=== PATIENT | female | born 1975 | race Caucasian/White ===

== ENCOUNTER 2016-11-21 11:18 | Emergency (ER) | payer OTHER ==
[~2016-11-21] VITALS: Ht 162.6 cm; Wt 54.4 kg
[2016-11-21 11:50] VITALS: BP 122/75
--- NOTE | 2016-11-21 12:42 | Diagnostic Imaging Report ---
Indication: Pain Findings: 3 views of the right elbow were obtained. No acute fractures, malalignment, erosions or periostitis are identified. Bone mineralization is within normal limits. Soft tissues are unremarkable. Impression: Negative examination of the elbow.
--- NOTE | 2016-11-21 13:48 | Emergency Room Report ---
History of Present Illness General Chief Complaint: Pain Source: Patient Present Illness HPI Patient presents with R elbow pain worsened for 3 days. No known trauma. No fevers. Pain is in elbow and slightly in dorsal forearm. Radiate slightly to forearm. Sharp and aching. Pain 6/10. Took med someone gave her (possibly 600 mg ibuprofen) with min relief. No numbness. Job has her lifting heavy objects repetitively. No NVD, dysuria. R handed. Allergies: Coded Allergies: No Known Allergies (Unverified , 11/21/16) Patient History Past Medical History: see triage record Social History: Denies: smoking Social History Narrative works with lifting Reviewed Nursing Documentation: PMH: Agreed, PSxH: Agreed Nursing Documentation-PMH Past Medical History: No Stated History Review of Systems All Other Systems: negative except mentioned in HPI Physical Exam Vital Signs Date Time Temp Pulse Resp B/P (MAP) Pulse Ox O2 Delivery O2 Flow Rate FiO2 11/21/16 11:37 98.2 77 20 122/75 99 Room Air Sp02 EP Interpretation: reviewed, normal General Appearance: well appearing, no apparent distress Head: normocephalic, atraumatic Eyes: bilateral eye normal inspection, bilateral eye PERRL ENT: hearing grossly normal, normal voice, moist mucus membranes Neck: full range of motion, supple Respiratory: no respiratory distress, speaking full sentences Cardiovascular #1: regular rate, rhythm Cardiovascular #2: 2+ radial (R) - good cap fill Gastrointestinal: normal inspection Musculoskeletal: back normal, digits/nails normal, normal range of motion, other - tender lateral elbow and dorsal forearm muscles. No ulnar gutter tenderness Neurologic: alert, motor strength/tone normal, sensory intact, normal gait, other - RMU nerves tested normal Psychiatric: mood/affect normal Skin: no rash Medical Decision Making Diagnostic Impression: Primary Impression: Elbow strain Qualified Codes: S56.911A - Strain of unspecified muscles, fascia and tendons at forearm level, right arm, initial encounter ER Course Patient with 3 d of R elbow pain. DDx: strain, tendonitis, gout amongst others. Based on exam, latter doubted. Evaluation with x-ray. Treatment wit ibuprofen. Xray normal. Abdulkadir applied by me. Tension good and improved after placement. Neurovasc normal as checked by me. Improved with treatment. Patient stable for outpatient observation and treatment. Other X-Ray Diagnostic Results Other X-Ray Diagnostic Results : X-Ray ordered: R elbow Indication: Pain EP Interpretation: Yes Interpretation: no dislocation, no soft tissue swelling, no fractures Impression: No acute disease Electronically Signed by: Swapnil Edwards MD Last Vital Signs Date Time Temp Pulse Resp B/P (MAP) Pulse Ox O2 Delivery O2 Flow Rate FiO2 11/21/16 14:06 98.2 69 20 122/75 99 Room Air Status: improved Disposition: HOME, SELF-CARE Condition: Improved Scripts Tramadol Hcl* (ULTRAM*) 50 Mg Tablet 50 MG ORAL Q6H Y for severe pain, #10 TAB 0 Refills Prov: Swapnil Edwards M.D. 11/21/16 Ibuprofen* (MOTRIN*) 600 Mg Tablet 600 MG ORAL Q6H Y for For Pain, #20 TAB Prov: Swapnil Edwards M.D. 11/21/16 Referrals: [facility] (PCP) Swapnil Edwards M.D. Nov 21, 2016 13:48
[2016-11-21] MEDS ORDERED: IBUPROFEN600 MG ORAL (13:53)
[2016-11-21] MEDS ORDERED: TRAMADOL HCL50 MG ORAL (13:53)
[2016-11-21 14:06] VITALS: BP 122/75
== END 2016-11-21 14:07 | disposition home or self-care (01) ==
LOC: EMR 12:55
DX: S56.911A Strain of unspecified muscles, fascia and tendons at forearm level, right arm, initial encounter (principal); X50.0XXA Overexertion from strenuous movement or load, initial encounter; Y93.9 Activity, unspecified; Y99.0 Civilian activity done for income or pay
CPT/HCPCS: 99283